=== PATIENT | female | born 1990 | race Caucasian/White ===

== ENCOUNTER 2022-02-08 21:20 | Emergency (ER) | payer MEDICAID ==
[~2022-02-08] VITALS: Ht 157.5 cm; Wt 72.7 kg
[2022-02-08] MEDS ORDERED: morphine IR (immed. release) 30mg tablet PO ONE (23:00)
[2022-02-09] MEDS ORDERED: morphine IR (immed. release) 30mg tablet PO ONE (00:45)
[2022-02-09] MEDS ORDERED: MORP30TA PO (00:47)
[2022-02-09] MEDS ORDERED: ondansetron 4mg rapidly disintigrating tab PO ONE (01:20)
[2022-02-09 01:28] VITALS: BP 129/60
== END 2022-02-09 01:32 | disposition home or self-care (01) ==
LOC: ER 21:21
DX: R10.10 Upper abdominal pain, unspecified (principal); K59.00 Constipation, unspecified; R11.0 Nausea; Z95.1 Presence of aortocoronary bypass graft; Z88.6 Allergy status to analgesic agent; Z88.5 Allergy status to narcotic agent; Z79.899 Other long term (current) drug therapy
CPT/HCPCS: 99284